=== PATIENT | male | born 1985 | race Caucasian/White ===

== ENCOUNTER 2016-10-12 23:19 | Emergency (ER) | payer SELFPAY ==
[2016-10-13] MEDS ORDERED: DIPH/PERTUSS(ACELL)/TETANUS VAC/PF 0.5 ML SYR (>=10YO) IM ONE (02:48)
--- NOTE | 2016-10-13 02:52 | ER Document Report ---
ED General - General Stated Complaint: POKED SELF WITH CHICKEN WIRE Notes: Patient is a 31-year-old male presents with complaint of swelling in his left arm with some erythema. He says it occurred approximately 12 hours after he had been poked with a metal chickenwire fence. Patient says that yesterday start taking Augmentin that he had left over from tooth infection. He says this seems to be helping swelling and redness is decreasing. Also swelling decreases keeps arm elevated. He said 24 hours ago he can barely flex and extend his wrist, but now is able to do this well without too much difficulty. No fevers. No other complaints at this time. TRAVEL OUTSIDE OF THE [place] IN LAST 30 DAYS: No - Related Data Allergies/Adverse Reactions: No Known Allergies Allergy (Verified 09/14/16 11:29) Past Medical History - Social History Smoking Status: Current Every Day Smoker Frequency of alcohol use: None Drug Abuse: Marijuana Family History: Arthritis, COPD, DM, Hypertension Patient has suicidal ideation: No Patient has homicidal ideation: No Renal/ Medical History: Denies: Hx Peritoneal Dialysis Psychiatric Medical History: Reports: Hx Attention Deficit Hyperactivity Disorder, Hx Bipolar Disorder Traumatic Medical History: Reports: Hx Fractures - Mandible Past Surgical History: Reports: Hx Inguinal Hernia - left, Hx Orthopedic Surgery - jaw - Immunizations Immunizations up to date: Yes Hx Diphtheria, Pertussis, Tetanus Vaccination: Yes Review of Systems - Review of Systems Notes: My Normal Review Basic REVIEW OF SYSTEMS: CONSTITUTIONAL : Denies fever, chills, or sweats. Denies recent illness. MUSCULOSKELETAL: Pain and swelling to left wrist. SKIN: Denies rash or skin lesions. NEUROLOGICAL: Denies altered mental status or loss of consciousness. Denies headache. Denies weakness or paralysis or loss of use of either side. Denies problems with gait or speech. Denies sensory or motor loss. ALL OTHER SYSTEMS REVIEWED AND NEGATIVE. Physical Exam - Vital signs Vitals: Temp Pulse Resp BP Pulse Ox 98.2 F 106 H 16 144/90 H 100 10/12/16 23:27 10/12/16 23:27 10/12/16 23:27 10/12/16 23:27 10/12/16 23:27 - Notes Notes: General Appearance: Well nourished, alert, cooperative, no acute distress, no obvious discomfort. Vitals: reviewed, See vital signs table. Extremities: strength 5/5 in all extremities, good pulses in all extremities, very minimal swelling to the left forearm. Very faint erythema. Patient has a line demarcating with the previous erythema was. This is very much improved in comparison to the line he made a day ago. Patient is good range of motion of the wrist and hand. Good distal sensation. Skin: warm, dry, appropriate color, no rash Neuro: speech clear, oriented x 3, normal affect, responds appropriately to questions. Course - Vital Signs Vital signs: Temp Pulse Resp BP Pulse Ox 98.1 F 82 16 130/81 H 100 10/13/16 03:06 10/13/16 03:06 10/13/16 03:06 10/13/16 03:06 10/13/16 03:06 - Transfer of Care Notes: 10/13/16 06:08 Patient has what appears base very mild cellulitis that has significantly improved from 24 hours ago after he started the Augmentin by himself at home. Patient has what appears be approximately 6 tablets left in the bottle. I'll write a prescription for more medicines of a toothache. The course. I encourage her to continue taking Augmentin as it appears to be working well. I will give him a sling psychiatric the arm elevated. I encouraged him to return to ER immediately if he has any recurrence of swelling, recurrence of redness, fevers, or feels that his symptoms are worsening in any way. Patient agrees with plan will be discharged home. Dictation of this chart was performed using voice recognition software; therefore, there may be some unintended grammatical errors. Discharge - Discharge Clinical Impression: Cellulitis Qualifiers: Site of cellulitis: extremity Site of cellulitis of extremity: upper extremity Laterality: left Qualified Code(s): L03.114 - Cellulitis of left upper limb Condition: Good Disposition: HOME, SELF-CARE Additional Instructions: Please keep your arm elevated when not in use. Please return to ER immediately if you have increased swelling, spreading redness, fevers, or feel unwell. Prescriptions: Amox Tr/Potassium Clavulanate [Augmentin 875-125 Tablet] 1 tab PO BID #14 tablet
[2016-10-13 03:16] VITALS: BP 130/81
== END 2016-10-13 03:17 | disposition home or self-care (01) ==
LOC: ER 23:19
DX: L03.114 Cellulitis of left upper limb (principal); M79.89 Other specified soft tissue disorders; W22.8XXA Striking against or struck by other objects, initial encounter; F17.210 Nicotine dependence, cigarettes, uncomplicated
CPT/HCPCS: 90471; 90715; 99283

== ENCOUNTER 2020-02-21 12:32 | Emergency (ER) | payer BC ==
[2020-02-21 12:49] VITALS: BP 122/81
--- NOTE | 2020-02-21 12:57 | ER Document Report ---
ED General - General Chief Complaint: Medical Clearance Stated Complaint: MEDICAL CLERANCE Time Seen by Provider: 02/21/20 12:50 Notes: 34-year-old male presents asking for a work note. He had vomiting yesterday which now resolved and missed work. He has no further vomiting belly pain or diarrhea. TRAVEL OUTSIDE OF THE [place] IN LAST 30 DAYS: No - Related Data Allergies/Adverse Reactions: No Known Allergies Allergy (Verified 09/14/16 11:29) Past Medical History - General Information source: Patient - Social History Smoking Status: Never Smoker Family History: Arthritis, COPD, DM, Hypertension Renal/ Medical History: Denies: Hx Peritoneal Dialysis Psychiatric Medical History: Reports: Hx Attention Deficit Hyperactivity Disorder, Hx Bipolar Disorder Traumatic Medical History: Reports: Hx Fractures - Mandible Past Surgical History: Reports: Hx Inguinal Hernia - left, Hx Orthopedic Surgery - jaw - Immunizations Immunizations up to date: Yes Hx Diphtheria, Pertussis, Tetanus Vaccination: Yes Review of Systems - Review of Systems Notes: REVIEW OF SYSTEMS GEN: Denies fever, chills, weight loss ENT: Denies sore throat, nasal discharge, ear pain EYES: Denies blurry vision, eye pain, discharge CV: Denies chest pain, palpitations, edema RESP: Denies cough, shortness of breath, wheezing GI: Resolved MSK: Denies joint pain/swelling, edema, SKIN: Denies rash, skin lesions LYMPH: Denies swollen glands/lymph nodes NEURO: Denies headache, focal weakness or numbness, dizziness PSYCH: Denies depression, suicidal or homicidal ideation PHYSICAL EXAMINATION General: No acute distress, well-nourished Head: Atraumatic, normocephalic ENT: Mouth normal, oropharynx moist, lips normal Eyes: Conjunctiva normal, pupils equal, lids normal Neck: No JVD, supple, no guarding Resp: No resp distress, equal chest rise GI: Nondistended, no guarding Back: No midline or CVA tenderness Ext: No deformities, no edema Skin: Well-perfused, no rash Neuro: Awake, alert. Face symmetric.. Physical Exam - Vital signs Vitals: Temp Pulse Resp BP Pulse Ox 98.6 F 92 16 122/81 98 02/21/20 12:46 02/21/20 12:46 02/21/20 12:46 02/21/20 12:46 02/21/20 12:46 Course - Re-evaluation Re-evalutation: 02/21/20 12:56 Resolved nausea vomiting, no ongoing symptoms normal vitals safe for discharge Given work note for todayexplained unable to provide retroactive work note. I have discussed with the patient there likely diagnosis, aftercare plan, follow- up plans and my usual and customary return precautions. They verbalized understanding of this. - Vital Signs Vital signs: Temp Pulse Resp BP Pulse Ox 98.6 F 92 16 122/81 98 02/21/20 12:46 02/21/20 12:46 02/21/20 12:46 02/21/20 12:46 02/21/20 12:46 Discharge - Discharge Clinical Impression: Nausea and vomiting Qualifiers: Vomiting type: unspecified Vomiting Intractability: unspecified Qualified Code(s): R11.2 - Nausea with vomiting, unspecified Condition: Good Disposition: HOME, SELF-CARE Instructions: Vomiting ([facility]) Forms: Return to Work
== END 2020-02-21 14:00 | disposition home or self-care (01) ==
LOC: ER 12:32
DX: R11.2 Nausea with vomiting, unspecified (principal)
CPT/HCPCS: 99281